=== PATIENT | male | born 2000 | race Caucasian/White ===

== ENCOUNTER 2023-12-14 15:31 | Emergency (ER) | payer BC, SELFPAY ==
[2023-12-14 15:39] VITALS: BP 117/70; PULSE 76; RESP 16; TEMP 36.8; O2SAT 96; BMI 22.9
--- NOTE | 2023-12-14 15:42 | HMH.EDGENADL ---
Discharge Plan Disposition Patient Disposition: Home, Self-Care Condition: Good Prescriptions Prescriptions: New lidocaine 5 % adhesive patch,medicated 1 patch topical DAILY Qty: 30 0RF Rx Instructions: leave on most painful area for up to 12 hrs Referrals Follow up/Referrals: Aaron Bryan [Primary Care Provider] - See instructions Activity Restrictions/Add. Instructions Additional Instructions/Restrictions: Rest, ice/heat whichever feels better, and follow-up with your PCP or return to ER if no improvement or worsening symptoms. Clinical Impressions Clinical Impression: Strain of lumbar paraspinous muscle Qualifiers: Encounter type: initial encounter Qualified Code(s): S39.012A - Strain of muscle, fascia and tendon of lower back, initial encounter Stand Alone Forms Stand Alone Forms: Work/School Release Discharge ED Provider: Radha Spann General Adult HPI <TAMMIE Lang - Last Filed: 12/14/23 17:00> General Chief complaint: PAIN Stated complaint: back pain Time Seen by Provider: 12/14/23 15:42 History of Present Illness HPI narrative: Patient states that he was lifting approximately 10 to 15 pounds of paper while bent over and felt an immediate pain in his right lumbar muscular area. It has not improved and is now having pain even with right upper extremity abduction or axial skeleton movement. He describes the pain as sharp in nature worse with flexion extension rotation of the spine. Patient states the pain does not travel and has no loss of sensation bowel or bladder function. Related Data Previous Rx's Medication Instructions Recorded lidocaine 5 % topical patch 1 patch topical DAILY #30 ea 12/14/23 Allergies Allergy/AdvReac Type Severity Reaction Status Date / Time No Known Allergies Allergy Verified 12/14/23 16:09 PFS <TAMMIE Lang - Last Filed: 12/14/23 17:00> [facility] Disclaimer: The information contained in this section may have been updated after the patient was seen, as this information can be updated by other users. Social History (Updated 12/14/23 @ 17:00 by TAMMIE Lang) Smoking Status: Never smoker alcohol intake: current current occupational status: employed Travel in the last 8 weeks: None <TAMMIE Lang - Last Filed: 12/14/23 17:00> ROS Obtained: Yes Systems reviewed as appropriate & no additional complaints except as documented Physical Exam <TAMMIE Lang - Last Filed: 12/14/23 17:00> General General appearance: alert and in no apparent distress Head Head exam: atraumatic and normal inspection Eye Eye exam: Present normal appearance and PERRL ENT ENT exam: Present normal exam and normal oropharynx Neck Neck exam: Present normal inspection and full ROM; Absent tenderness (Cervical spine) Chest Chest inspection: Present normal inspection and symmetric chest wall rise Respiratory Respiratory exam: Present normal lung sounds bilaterally; Absent respiratory distress Cardiovascular Cardiovascular exam: Present regular rate, normal rhythm, normal heart sounds, +S1 and +S2 Abdominal Exam Abdominal exam: Present soft and normal bowel sounds; Absent tenderness, guarding or rebound Extremities Exam Extremities exam: Present normal inspection and full ROM; Absent tenderness Back Exam Back exam: Present normal inspection, tenderness (To palpation in the right lumbar paraspinous area) and paraspinal tenderness; Absent full ROM (Due to pain in the right lumbar paraspinous area), CVA tenderness (R), CVA tenderness (L) or vertebral tenderness Neurological Exam Neurological exam: Present alert, oriented X3 and CN II-XII intact Psychiatric Psychiatric exam: Present normal affect and normal mood Skin Skin exam: Present warm, dry and normal color Medical Decision Making <TAMMIE Lang - Last Filed: 12/14/23 17:00> Medical Records Medical records reviewed: Yes I reviewed the patient's medical records. Miguel Inquiry Pt receiving controlled substance: No Vital Signs: 12/14/23 15:39 12/14/23 17:06 Temperature 98.2 F 98.2 F Temperature Source Oral Pulse Rate 66 Pulse Rate [Left Radial] 76 Respiratory Rate 16 16 Blood Pressure 114/70 Blood Pressure [Right Arm] 117/70 Blood Pressure Mean [Right Arm] 85 02 Sat by Pulse Oximetry 96 Oxygen Delivery Method Room Air Room Air Lab Data Lab results reviewed: Yes I reviewed the patient's lab results. Orders (Tests/Meds): ED MEDICATIONS Discontinued Medications Generic Name Dose Route Start Last Admin Trade Name Freq PRN Reason Stop Dose Admin Acetaminophen 1,000 mg 12/14/23 15:58 12/14/23 16:11 Acetaminophen 500mg Tab PO 12/14/23 15:59 1,000 mg ONCE ONE Administration Ketorolac Tromethamine 30 mg 12/14/23 15:58 12/14/23 16:12 Ketorolac 30mg/Ml Vial IM 12/14/23 15:59 30 mg ONCE ONE Administration Lidocaine 1 each 12/14/23 15:58 12/14/23 16:11 Lidocaine 5% Transdermal Patch TP 12/14/23 15:59 1 each ONCE ONE Administration ORDERS Category Date Time Status Chest XR -- portable [XR chest portable] Stat Exams 12/14/23 15:58 Completed Medical Decision Narrative: In summary patient is a 23-year-old male who presents to the emergency department for evaluation of acute low back pain. Patient is hemodynamically stable upon arrival, and afebrile. Physical exam is remarkable for tenderness to palpation in the lumbar paraspinous area. Patient has no deformities contusions abrasions tenderness to palpation of the bony skeleton. Patient has no neuropathy or radicular pain. Patient has no aggravating or relieving factors. Differential diagnosis includes musculoskeletal strain versus spontaneous pneumothorax versus intervertebral disc herniation. Initial workup will be conducted with radiographic labs. Initial interventions include Tylenol IM Toradol and lidocaine patch. Initial workup reviewed by me shows no evidence of spontaneous pneumothorax and no acute processes in the chest. Upon repeat evaluation had interval in reduction of his pain with the cocktail of Toradol acetaminophen and lidocaine. Given this appropriate for discharge with close follow-up with PCP or return to the ER for any worsening pain or symptoms. For shared decision making patient verbalized understanding and agreement with plan <Radha Spann, DO - Last Filed: 12/14/23 19:46> Vital Signs: 12/14/23 15:39 12/14/23 17:06 Temperature 98.2 F 98.2 F Temperature Source Oral Pulse Rate 66 Pulse Rate [Left Radial] 76 Respiratory Rate 16 16 Blood Pressure 114/70 Blood Pressure [Right Arm] 117/70 Blood Pressure Mean [Right Arm] 85 02 Sat by Pulse Oximetry 96 Oxygen Delivery Method Room Air Room Air Orders (Tests/Meds): ED MEDICATIONS Discontinued Medications Generic Name Dose Route Start Last Admin Trade Name Freq PRN Reason Stop Dose Admin Acetaminophen 1,000 mg 12/14/23 15:58 12/14/23 16:11 Acetaminophen 500mg Tab PO 12/14/23 15:59 1,000 mg ONCE ONE Administration Ketorolac Tromethamine 30 mg 12/14/23 15:58 12/14/23 16:12 Ketorolac 30mg/Ml Vial IM 12/14/23 15:59 30 mg ONCE ONE Administration Lidocaine 1 each 12/14/23 15:58 12/14/23 16:11 Lidocaine 5% Transdermal Patch TP 12/14/23 15:59 1 each ONCE ONE Administration ORDERS Category Date Time Status Chest XR -- portable [XR chest portable] Stat Exams 12/14/23 15:58 Completed Medical Decision Narrative: In summary patient is a 23-year-old male who presents to the emergency department for evaluation of acute low back pain. Patient is hemodynamically stable upon arrival, and afebrile. Physical exam is remarkable for tenderness to palpation in the lumbar paraspinous area. Patient has no deformities contusions abrasions tenderness to palpation of the bony skeleton. Patient has no neuropathy or radicular pain. Patient has no aggravating or relieving factors. Differential diagnosis includes musculoskeletal strain versus spontaneous pneumothorax versus intervertebral disc herniation. Initial workup will be conducted with radiographic labs. Initial interventions include Tylenol IM Toradol and lidocaine patch. Initial workup reviewed by me shows no evidence of spontaneous pneumothorax and no acute processes in the chest. Upon repeat evaluation had interval in reduction of his pain with the cocktail of Toradol acetaminophen and lidocaine. Given this appropriate for discharge with close follow-up with PCP or return to the ER for any worsening pain or symptoms. For shared decision making patient verbalized understanding and agreement with plan I was consulted by the ANASTASIIA, and we discussed the complexity of the problems being addressed. I approved the treatment and management plan for this patient's care in the emergency department, thus performing a substantive portion of the medical decision making. The patient is well-appearing on clinical exam and neurologically intact with no saddle anesthesia, incontinence, or other concerns. No midline or bony tenderness. Feel he likely has musculoskeletal strain/sprain. He is discharged with instructions for supportive management and strict return precautions. Radha Spann, DO Critical Care <TAMMIE Lang - Last Filed: 12/14/23 17:00> Critical Care Time Critical Care Time: No
--- NOTE | 2023-12-14 15:58 | XR_ITS ---
FINAL REPORT CLINICAL HISTORY: Chest pain with breathing/ movement FINDINGS: A single PA view of the chest was obtained. There is no prior exam for comparison. The cardiac and mediastinal silhouettes are within normal limits. The lungs are clear. There is no effusion or pneumothorax. IMPRESSION: No radiographic evidence of acute cardiac or pulmonary disease on this single view of the chest. Reviewed, Interpreted and Dictated by Kate Peoples MD Transcribed by Liberty Rodriguez Authenticated and [facility]
[2023-12-14] MEDS: LIDOCAINE 5% TRANSDERMAL PATCH 1 EACH TP (16:11)
[2023-12-14] MEDS: ACETAMINOPHEN 500MG TAB 1000 MG PO (16:11)
[2023-12-14] MEDS: KETOROLAC 30MG/ML VIAL 30 MG IM (16:12)
[2023-12-14 17:06] VITALS: BP 114/70; PULSE 66; RESP 16; TEMP 36.8; O2SAT 97
== END 2023-12-14 17:07 | disposition home or self-care (01) ==
PROVIDERS: Emergency Provider Emergency Medicine; PCP Family Medicine
DX: S39.012A Strain of muscle, fascia and tendon of lower back, initial encounter (principal); X50.0XXA Overexertion from strenuous movement or load, initial encounter
CPT/HCPCS: 71045; 96372; 99283

== ENCOUNTER 2025-03-20 05:31 | Emergency (ER) | payer SELFPAY ==
--- NOTE | 2025-03-20 05:40 | CT_ITS ---
PROCEDURE INFORMATION: Exam: CT Head Without Contrast Exam date and time: 03/20/2025 6:01 AM Age: 24 years old Clinical indication: Injury or trauma; Other: Hit in the head; Work related; Blunt trauma (contusions or hematomas); Injury details: Struck on left frontal forehead, small knot and bruising; Additional info: Struck on L frontal head, photophobia TECHNIQUE: Imaging protocol: Computed tomography of the head without contrast. Radiation optimization: All CT scans at this facility use at least one of these dose optimization techniques: automated exposure control; mA and/or kV adjustment per patient size (includes targeted exams where dose is matched to clinical indication); or iterative reconstruction. COMPARISON: No relevant prior studies available. FINDINGS: Brain: Normal appearing brain parenchyma without intraparenchymal hemorrhage and normal damon-white matter differentiation/no obvious acute ischemic stroke. No intra-or extra-axial fluid collection, no supra-or infratentorial mass, no mass effect or midline shift. Cerebral ventricles: Ventricles, sulci and basal cisterns are normal in size without hydrocephalus. Paranasal sinuses: Retention cysts in the LEFT maxillary sinus. Mastoid air cells: No mastoid effusion. Bones: Visualized skull bones are grossly normal. Soft tissues: LEFT periorbital, supraorbital and frontal scalp hematoma. IMPRESSION: No evidence of an acute intracranial hemorrhage, mass lesion or obvious acute ischemic infarction.
[2025-03-20 05:42] VITALS: BP 131/87; PULSE 95; RESP 14; TEMP 37.2; O2SAT 98; BMI 23.6
--- NOTE | 2025-03-20 05:43 | ED_ITS ---
Discharge Plan Disposition Patient Disposition: Home, Self-Care Condition: Good Prescriptions Prescriptions: No Action lidocaine 5 % adhesive patch,medicated 1 patch topical DAILY Qty: 30 0RF Rx Instructions: leave on most painful area for up to 12 hrs Referrals Follow up/Referrals: Irvin,Aaron, DO [Primary Care Provider, Medical] - See instructions Activity Restrictions/Add. Instructions Additional Instructions/Restrictions: You were evaluated in the emergency department today. CT imaging today is normal. Please see attached concussion handout. Follow-up closely with your primary care provider. Return to the emergency department for new or worsening symptoms. Clinical Impressions Clinical Impression: Closed head injury, Concussion Stand Alone Forms Stand Alone Forms: Work/School Release Instructions Patient Instructions: DI for Concussion, DI for Closed Head Injury Print Language Print Language: Niuean Discharge ED Provider: Radha Spann General Adult HPI <Kenny De Anda MD - Last Filed: 03/21/25 02:27> General Chief complaint: PAIN Stated complaint: head injury, hurts to look at light Time Seen by Provider: 03/20/25 05:39 History of Present Illness HPI narrative: 24-year-old male presents to the ER nearly 20 hours after a head injury at work. Patient reports a box with car parts and it fell in the corner of the box struck him on the left side of the head. He points to the left frontotemporal area where he has a very superficial abrasion and small ecchymosis. He states he had a large knot there that has since gone down. He reports he took ibuprofen yesterday afternoon for headache. He states he is still having heada stepan and is sensitive to light so he came to the ER for further evaluation. He states he has had concussion before but just wants to make sure everything is okay. He reports no history of easy bleeding or bruising, no blood thinners, no loss of consciousness. Patient reports his left eye is more sensitive to light than his right and that he feels like he has slightly blurry vision in the left eye though the eye itself was not struck or injured and he does not have pain in the eye. He reports he is supposed to wear glasses. No other injuries or complaints or concerns. He specifically denies nausea, vomiting, numbness, tingling, or weakness. Related Data Previous Rx's ?Medication ?Instructions ?Recorded lidocaine 5 % topical patch 1 patch topical DAILY #30 ea 12/14/23 Allergies Allergy/AdvReac Type Severity Reaction Status Date / Time No Known Allergies Allergy Verified 12/14/23 16:09 [facility] <Kenny D eAnda MD - Last Filed: 03/21/25 02:27> [facility] Disclaimer: The information contained in this section may have been updated after the patient was seen, as this information can be updated by other users. Social History (Updated 12/14/23 @ 17:00 by TAMMIE Lang) Smoking Status: Unknown if ever smoked alcohol intake: current alcohol intake frequency: a few times a month current occupational status: employed Travel in the last 8 weeks?: None Have you lived/traveled outside [place] in past 30 days?: No Contact w/someone who lives/traveled outside US past 30 days?: No Exposure to someone with infectious disease in past 14 days?: No Do you have a fever (greater than 100.4 F or 38 C)?: No Have you tested positive for COVID-19?: No Exposed to someone with COVID-19 in past 14 days?: No Do you have a sore throat?: No Do you have a cough?: No Do you have any weakness?: No Do you have any diarrhea?: No Are you experiencing any unusual bleeding?: No Do you have any muscle aches/pain?: No Do you have any abdominal pain?: No Are you experiencing loss of taste or smell?: No <Radha Spann DO - Last Filed: 03/20/25 07:50> ROS Obtained: Yes All systems reviewed & no additional complaints except as documented Physical Exam <Kenny De Anda MD - Last Filed: 03/21/25 02:27> General General appearance: alert and in no apparent distress Head Head exam: normocephalic and other (Small area of ecchymosis with slight superficial abrasion over the left frontal temporal area without skull deformity or other abnormality) Eye Eye exam: Present PERRL and EOMI; Absent conjunctival injection Expanded Eye Exam Visual acuity (R) = 20/: 50 Visual acuity (L) = 20/: 40 With correction: No IOP (R) in mmH IOP (L) in mmH IOP measured with: other (i-care tonopen) ENT ENT exam: Present mucous membranes moist Neck Neck exam: Present normal inspection and full ROM Chest Chest inspection: Present symmetric chest wall rise Respiratory Respiratory exam: Absent respiratory distress or stridor Cardiovascular Cardiovascular exam: Present regular rate and normal rhythm Extremities Exam Extremities exam: Present full ROM Neurological Exam Neurological exam: Present alert and oriented X3; Absent motor sensory deficit Psychiatric Psychiatric exam: Present normal affect and normal mood Skin Skin exam: Present warm and dry Medical Decision Making <Kenny De Anda MD - Last Filed: 03/21/25 02:27> Medical Records Medical records reviewed: Yes I reviewed the patient's medical records. Screening: Per USPSTF and CDC recommendations, given the prevalence of disease in our region, it is our hospital?s policy to screen for HIV and viral Hepatitis for all patients aged 18 and over and those with ongoing risk factors. MR Comment: Patient seen in this ER in November 2023 and diagnosed with lumbar strain. Miguel Inquiry Pt receiving controlled substance: No Vital Signs: 03/20/25 05:42 03/20/25 06:30 03/20/25 07:00 Temperature 98.9 F Temperature Source Oral Pulse Rate 54 L 58 L Pulse Rate [Right] 95 H Respiratory Rate 14 18 Blood Pressure 139/73 134/79 Blood Pressure [Right Arm] 131/87 Blood Pressure Mean 90 95 Blood Pressure Mean [Right Arm] 101 Blood Pressure Source 02 Sat by Pulse Oximetry 98 95 96 Oxygen Delivery Method Room Air 03/20/25 07:30 03/20/25 07:37 Temperature 98.6 F Temperature Source Oral Pulse Rate 57 L 72 Pulse Rate [Right] Respiratory Rate 18 16 Blood Pressure 142/78 H 142/78 H Blood Pressure [Right Arm] Blood Pressure Mean 94 Blood Pressure Mean [Right Arm] Blood Pressure Source Automatic Cuff 02 Sat by Pulse Oximetry 97 Oxygen Delivery Method Room Air Orders (Tests/Meds): ED MEDICATIONS Discontinued Medications Generic Name Dose Route Start Last Admin Trade Name Freq PRN Reason Stop Dose Admin Acetaminophen 1,000 mg 03/20/25 05:39 03/20/25 05:45 Acetaminophen 500mg Tab PO 03/20/25 05:40 1,000 mg ONCE ONE Administration ORDERS Category Date Time Status CT head/brain wo con Stat Cat Scan 03/20/25 05:40 Completed Medical Decision Narrative: In summary, this 24-year-old male presents to the emergency department today with strike to the left side of the head nearly a day ago now having headache and photophobia. On initial evaluation patient is hemodynamically stable, afebrile, GCS 15, no neurologic deficits, PERRLA, extraocular movements intact, intraocular pressure is normal, though patient thought his left eye was more blurry than his right, the visual acuity in the left eye is actually better than the right. He is supposed to be wearing glasses which he does not have with him. Differential diagnosis includes but is not limited to concussion which is the most likely diagnosis, also considered tension headache, posttraumatic headache, and much less likely though still considered is intracranial bleed. Based on these concerns, I ordered CT head. Patient received Tylenol for treatment in the ER. CT head personally interpreted demonstrates no acute intracranial bleed or skull fracture. Radiology read pending at the time of physician handoff. Patient handed off to Dr. Spann in stable condition. DO Zana: I assumed care of the patient at 7 AM at time of departure previous provider. On my assessment, he is sitting upright in no acute distress and is neurologically intact. He states he is feeling fine. I independently interpreted CT scan prior to radiology read and noted no intracranial hemorrhage. Please see radiology read for final interpretation. At this time, I feel the patient is appropriate for discharge home with instructions for supportive care of likely concussion. He was given strict return precautions and was discharged after all questions were answered. <Radha Spann DO - Last Filed: 03/20/25 07:50> Vital Signs: 03/20/25 05:42 03/20/25 06:30 03/20/25 07:00 Temperature 98.9 F Temperature Source Oral Pulse Rate 54 L 58 L Pulse Rate [Right] 95 H Respiratory Rate 14 18 Blood Pressure 139/73 134/79 Blood Pressure [Right Arm] 131/87 Blood Pressure Mean 90 95 Blood Pressure Mean [Right Arm] 101 Blood Pressure Source 02 Sat by Pulse Oximetry 98 95 96 Oxygen Delivery Method Room Air 03/20/25 07:30 03/20/25 07:37 Temperature 98.6 F Temperature Source Oral Pulse Rate 57 L 72 Pulse Rate [Right] Respiratory Rate 18 16 Blood Pressure 142/78 H 142/78 H Blood Pressure [Right Arm] Blood Pressure Mean 94 Blood Pressure Mean [Right Arm] Blood Pressure Source Automatic Cuff 02 Sat by Pulse Oximetry 97 Oxygen Delivery Method Room Air Orders (Tests/Meds): ED MEDICATIONS Discontinued Medications Generic Name Dose Route Start Last Admin Trade Name Francia PRN Reason Stop Dose Admin Acetaminophen 1,000 mg 03/20/25 05:39 03/20/25 05:45 Acetaminophen 500mg Tab PO 03/20/25 05:40 1,000 mg ONCE ONE Administration ORDERS Category Date Time Status CT head/brain wo con Stat Cat Scan 03/20/25 05:40 Completed Medical Decision Narrative: In summary, this 24-year-old male presents to the emergency department today with strike to the left side of the head nearly a day ago now having headache and photophobia. On initial evaluation patient is hemodynamically stable, afebrile, GCS 15, no neurologic deficits, PERRLA, extraocular movements intact, intraocular pressure is normal, though patient thought his left eye was more blurry than his right, the visual acuity in the left eye is actually better than the right. He is supposed to be wearing glasses which he does not have with him. Differential diagnosis includes but is not limited to concussion which is the most likely diagnosis, also considered tension headache, posttraumatic headache, and much less likely though still considered is intracranial bleed. Based on these concerns, I ordered CT head. Patient received Tylenol for treatment in the ER. CT head personally interpreted demonstrates []. DO Zana: I assumed care of the patient at 7 AM at time of departure previous provider. On my assessment, he is sitting upright in no acute distress and is neurologically intact. He states he is feeling fine. I independently interpreted CT scan prior to radiology read and noted no intracranial hemorrhage. Please see radiology read for final interpretation. At this time, I feel the patient is appropriate for discharge home with instructions for supportive care of likely concussion. He was given strict return precautions and was discharged after all questions were answered. Critical Care <Radha Spann DO - Last Filed: 03/20/25 07:50> Critical Care Time Critical Care Time: No
[2025-03-20] MEDS: ACETAMINOPHEN 500MG TAB 1000 MG PO (05:45)
--- NOTE | 2025-03-20 05:49 | PC.NURSE ---
performed visual acuity test on pt. right eye-20/50 left eye-20/40 both eyes-20/30
[2025-03-20 06:30] VITALS: BP 139/73; PULSE 54; O2SAT 95
[2025-03-20 07:00] VITALS: BP 134/79; PULSE 58; RESP 18; O2SAT 96
[2025-03-20 07:30] VITALS: BP 142/78; PULSE 57; RESP 18; O2SAT 97
[2025-03-20 07:37] VITALS: BP 142/78; PULSE 72; RESP 16; TEMP 37; O2SAT 98
== END 2025-03-20 07:43 | disposition home or self-care (01) ==
PROVIDERS: Emergency Provider Emergency Medicine; PCP Family Medicine
DX: S06.0X0A Concussion without loss of consciousness, initial encounter (principal); S06.0X9A Concussion with loss of consciousness of unspecified duration, initial encounter; W22.8XXA Striking against or struck by other objects, initial encounter
CPT/HCPCS: 70450; 99284